=== PATIENT | female | born 1975 | race Caucasian/White ===

== ENCOUNTER 2017-09-18 03:18 | Emergency (ER) | payer OTHER ==
[~2017-09-18] VITALS: Ht 154.9 cm; Wt 63.5 kg
[2017-09-18 03:28] VITALS: BP 171/91
[2017-09-18] MEDS ORDERED: diphenhydrAMINE HCL 50 MG/ML VIAL IM ONE (03:30)
[2017-09-18] MEDS ORDERED: LORAZEPAM 1 MG TABLET PO ONE (03:30)
[2017-09-18] MEDS ORDERED: diphenhydrAMINE HCL 50 MG/ML VIAL ONE (03:31)
[2017-09-18] MEDS ORDERED: LORAZEPAM 1 MG TABLET ONE (03:32)
== END 2017-09-18 03:45 | disposition home or self-care (01) ==
LOC: ER 03:21
DX: F41.9 Anxiety disorder, unspecified (principal); H57.8 Other specified disorders of eye and adnexa
CPT/HCPCS: A4606; J1200; Z7610

== ENCOUNTER 2018-07-15 12:10 | Emergency (ER) | payer OTHER ==
[~2018-07-15] VITALS: Ht 147.3 cm; Wt 68.5 kg
[2018-07-15 12:10] VITALS: BP 143/84
== END 2018-07-15 13:45 | disposition home or self-care (01) ==
LOC: ER 12:12
DX: F41.9 Anxiety disorder, unspecified (principal); T45.0X5A Adverse effect of antiallergic and antiemetic drugs, initial encounter; Y92.89 Other specified places as the place of occurrence of the external cause
CPT/HCPCS: 99281; A4606; Z7502

== ENCOUNTER 2018-07-17 22:31 | Emergency (ER) | payer OTHER ==
[~2018-07-17] VITALS: Ht 152.4 cm; Wt 68.5 kg
[2018-07-17 23:01] VITALS: BP 186/111
--- NOTE | 2018-07-17 23:20 | NUR ---
RENEE MENDEZ AT BEDSIDE TO MONICA SARAH.
[2018-07-17] MEDS ORDERED: predniSONE 20 MG TABLET ONE (23:29)
[2018-07-17] MEDS ORDERED: FAMOTIDINE (20 MG) 20 MG TABLET ONE (23:29)
[2018-07-17] MEDS ORDERED: predniSONE 20 MG TABLET PO ONE (23:30)
[2018-07-17] MEDS ORDERED: FAMOTIDINE (20 MG) 20 MG TABLET PO ONE (23:30)
--- NOTE | 2018-07-17 23:33 | NUR ---
PT MEDICATED ORDERED. LABORATORY DIRECTOR AT BEDSIDE FOR BLOOD DRAW.
[2018-07-17 23:44] LABS: BASOPHILS # (AUTO) 0.1 /CMM (0.0-0.2); BASOPHILS % (AUTO) 0.7 % (0.0-2.0); EOSINOPHILS % (AUTO) 1.5 % (0.0-6.0); HEMATOCRIT 42 % (33-45); HEMOGLOBIN 14.2 g/dL (11.5-14.8); LYMPHOCYTES # (AUTO) 2.1 /CMM (0.8-4.8); LYMPHOCYTES % (AUTO) 25.6 % (20.0-44.0); MEAN CORPUSCULAR HGB CONC 34 g/dl (31.0-36.0); MEAN CORPUSCULAR VOLUME 84 fL (82-100); MONOCYTES # (AUTO) 0.6 /CMM (0.1-1.30); NEUTROPHILS # (AUTO) 5.5 /CMM (1.8-8.9); NEUTROPHILS % (AUTO) 65.2 % (43.0-81.0); PLATELET COUNT (AUTO) 366 /CMM (150-450); RED BLOOD CELL COUNT(AUTO) 4.97 MIL/uL (4.0-5.2); WHITE BLOOD COUNT (AUTO) 8.4 K/uL (4.3-11.0)
[2018-07-17 23:54] LABS: CALCIUM, SERUM 9.1 mg/dL (8.5-10.1); CREATININE 0.9 mg/dL (0.6-1.3); POTASSIUM 3.2 mmol/L (3.5-5.1)
--- NOTE | 2018-07-18 00:40 | NUR ---
ASSUMED CARE OF PT AT DISCHARGE. Patient discharged to home in stable condition. Written and verbal after care instructions given. Patient verbalizes understanding of instruction.
== END 2018-07-18 00:42 | disposition home or self-care (01) ==
LOC: ER 22:33
DX: F41.9 Anxiety disorder, unspecified (principal); E87.6 Hypokalemia; I10 Essential (primary) hypertension
CPT/HCPCS: 36415; 80048; 85025; 99283; A4606; J7512

== ENCOUNTER 2018-07-20 20:38 | Emergency (ER) | payer OTHER ==
[~2018-07-20] VITALS: Ht 152.4 cm; Wt 68.0 kg
[2018-07-20 21:11] VITALS: BP 166/98
== END 2018-07-20 21:53 | disposition home or self-care (01) ==
LOC: ER 20:45
DX: F45.8 Other somatoform disorders (principal); I10 Essential (primary) hypertension; F41.9 Anxiety disorder, unspecified
CPT/HCPCS: 99281; A4606; Z7502

== ENCOUNTER 2018-11-14 06:53 | Emergency (ER) | payer OTHER ==
[~2018-11-14] VITALS: Ht 152.4 cm; Wt 66.2 kg
--- NOTE | 2018-11-14 07:10 | NUR ---
BIBMOTHER C/O ITCHING TONGUE/ITCHY THROAT X 3 HOURS AGO. UNKNOWN FROM WHAT. PATIENT A/OX4, BREATHING EVEN AND UNLABORED, NO SOB NOTED. ATTACHED TO THE MONITOR, SPO2 96% IN ROOM AIR.
[2018-11-14] MEDS ORDERED: FAMOTIDINE/PF INJ 20 MG/2 ML VIAL IV ONE (07:24)
[2018-11-14] MEDS ORDERED: methylPREDNISolone SOD SUCC 125 MG/2ML VIAL ONE (07:24)
[2018-11-14] MEDS ORDERED: FAMOTIDINE/PF INJ 40 MG in IV D5W 250 ML IV ONE (07:30)
[2018-11-14] MEDS ORDERED: methylPREDNISolone SOD SUCC 125 MG/2ML VIAL IV ONE (07:30)
--- NOTE | 2018-11-14 08:34 | NUR ---
PIV REMOVED, RX PROVIDED, Patient discharged to home in stable condition. Written and verbal after care instructions given. Patient verbalizes understanding of instruction.
[2018-11-14 08:35] VITALS: BP 150/62
== END 2018-11-14 08:36 | disposition home or self-care (01) ==
LOC: ER 06:56
DX: T50.905A Adverse effect of unspecified drugs, medicaments and biological substances, initial encounter (principal); I10 Essential (primary) hypertension; F41.9 Anxiety disorder, unspecified; Z88.8 Allergy status to other drugs, medicaments and biological substances; Y92.89 Other specified places as the place of occurrence of the external cause
CPT/HCPCS: 96365; 96375; 99283; J2930; J3490; J7060